=== PATIENT | female | born 1965 | race Caucasian/White ===

== ENCOUNTER → 2016-09-02 | Outpatient (CLI) | payer MEDICARE, OTHER, MEDICAID ==
[~2016-09-02] MED LIST: ATARAX-DPS25 MG PO; ATIVAN-DPS0.5 MG PO; BACTROBAN OINT.22 GM TP; CEPACOL SORE T1 EACH PO; CLARITIN DPS10 MG PO; COMPETE1 EACH PO; COZAAR DPS25 MG PO; DUONEB DPS3 ML IH; EFFEXOR XR DPS150 M1 PO; FLAXSEED OIL1000 MG PO; FLEXERIL-DPS10 MG PO; GLUCOSAMINE/CHO1 TAB PO; KENALOG OINT. 015 GM TP; LACRI-LUBE3.5 GM OU; LACRISERT5 MG OU; LIPITOR DPS20 MG PO; LYSINE1000 MG PO; MIGRANAL1 ML NS; NEURONTIN DPS100 MG PO; OMEGA-3 DPS1000 MG PO; PRILOSEC DPS20 MG PO; REQUIP DPS0.5 MG PO; RESTASIS1 EACH OU; SEROQUEL XR200 MG PO; SYNTHROID112 MCG PO; TEARS NATURAL D15 ML OU; TOPAMAX200 M1 PO; TUMS DPS500 MG PO; TYLENOL DPS325 MG PO; VITAMIN C1000 MG PO; [UNRECOGNIZED DRUG - OTHER] PO
== END | disposition home or self-care (01) ==
LOC: RAD.S 09:30
DX: Z12.31 Encounter for screening mammogram for malignant neoplasm of breast (principal)

== ENCOUNTER 2016-11-16 11:32 | Emergency (ER) | payer MEDICARE, OTHER, MEDICAID ==
--- NOTE | 2016-11-18 10:39 | ER ---
ADMIT: 11/16/2016 RM/LOC: ER [facility] MR#: [id number] [place], [place] [id number] [facility] [place] [address] [address] Emergency Room Report SEX: F AGE: 51 : 1965 DATE: 11/16/2016 Please refer to my T-sheet for complete H and P. Briefly, the patient is a 51-year-old, comes in with her significant other, who says he cannot get her out of the car. She is unresponsive. She is complained of a headache. She has a known history of bipolar, known history of chronic migraine. Apparently, she is going to school and she has been under more stress. She had some dental work done today. PHYSICAL EXAMINATION: VITAL SIGNS: Her blood pressure is 147/103, pulse 91, respirations 18, temp 97.9, and satting 100%. GENERAL: She is lethargic, but it all seems very functional. HEENT: Head is atraumatic and normocephalic. NECK: Soft and supple. No meningismus. LUNGS: Clear. HEART: Regular. ABDOMEN: Obese and nontender. SKIN: No rash. NEURO: She has no focal findings. She complains about a severe headache and takes some encouragement to answer questions. EMERGENCY DEPARTMENT COURSE: Did a CT scan of her brain, CBC was normal except hemoglobin 16.7. Chemistries normal except CO2 21 and glucose 129. She is given a liter of normal saline bolus, Toradol 30 IV, Ativan 0.5 IV, and Reglan 10 IV. Symptoms were completely resolved. She felt much better. She is alert, talking to us, watching TV, feeling back to normal she said. ASSESSMENT: 1. Acute migraine headache. 2. Confusion, resolved, most likely secondary to migraine with the workup being negative. 3. History of bipolar. PLAN: Reglan 10 mg t.i.d. p.r.n., I gave her 15. Follow up with her neurologist. Return if worse, fluids, and rest. Zi Rodgres MD/ jorge l JOB #: [id number] CC: Zi Rodgers MD, Attending Physician Muna Jackson PA-C, Family Physician
== END 2016-11-16 13:37 | disposition home or self-care (01) ==
LOC: ER 11:32
DX: G43.909 Migraine, unspecified, not intractable, without status migrainosus (principal); F31.9 Bipolar disorder, unspecified; Z88.0 Allergy status to penicillin